=== PATIENT | female | born 1930 | race Caucasian/White ===

== ENCOUNTER → 2016-11-22 | Outpatient (CLI) | payer MEDICARE, BC ==
--- NOTE | 2016-11-22 14:20 | KCIC ---
Examination: MRI of the left forefoot without contrast. HISTORY History of left forefoot pain for 2 months. COMPARISON None available. TECHNIQUE Multiplanar, multisequence MR imaging of the left forefoot were performed without contrast. Findings : The alignment of the tarsal bones grossly appears unremarkable.Moderate degenerative changes identified at the base of the 3rd, 4th metatarsals and in the cuboid bone region and in the lateral cuneiform likely degeneration. The distal attachment of the peroneus longus tendon grossly appears intact. The visualized Lisfranc ligament is intact. There is mild joint space loss identified in the 1st metatarsal-phalangeal joint. There is increased STIR signal identified in the distal aspect of the proximal phalanx and in the middle phalanx of the 2nd toe. There is questionable mild increased STIR signal identified in the middle phalanx and distal aspect of the proximal phalanx of 3rd toe. There is corresponding low T1 signal identified in the 2nd toe involving the distal portion of the proximal phalanx and the middle phalanx of the 2nd toe. There is mild decrease in low T1 signal identified in the distal aspect of the a proximal phalanx and the middle phalanx of the 3rd toe. There is a diffuse decrease in low T1 signal identified in the proximal phalanx of the 4th toe and the middle phalanx of the 4th toe. The evaluation the 5th toe is limited. The evaluation of the toes is extremely limited due to significant motion artifact. Multiple repeats were attempted and motion was observed on all the repeat images as well. IMPRESSION 1. Very limited examination due to significant motion artifact. Multiple repeat images were performed which also demonstrate motion artifact. Low T1 signal with corresponding high STIR signal identified in the distal aspect of the proximal phalanx and in the middle phalanx of the 2nd toe. Similar findings also identified in the 3rd toe. Differential includes osteomyelitis, fractures, severe degenerative changes. Inflammatory joint disease. There is decreased low T1 signal identified in the 4th and 5th toes with no significant increased signal, nonspecific could be due to degeneration. A CT scan and triphasic bone scan can be considered further evaluation. 2. 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 Electronically signed by: Humberto Bolaños (Nov 22, 2016 14:19:47)
== END | disposition home or self-care (01) ==
LOC: KCIC MRI 13:00
PROVIDERS: ATTEND Nurse Practitioner Adult Health
DX: M79.672 Pain in left foot (principal)
CPT/HCPCS: 73718